=== PATIENT | female | born 1985 | race Caucasian/White ===

== ENCOUNTER 2019-08-19 22:13 | Emergency (ER) | payer OTHER ==
[2019-08-19] MEDS ORDERED: oxyCODONE/Acetamin 5/325 MG* TAB PO ONE (23:47)
--- NOTE | 2019-08-20 00:04 | ED ---
Throat Pain/Nasal Congestion - HPI Summary HPI Summary: 33 year old female presents with dental pain for the past week. [facility] and was on penicillin and given some tramadol. She followed up with her dentist who said that waned to wait a week to do something and is concerned that she has pulpitis and the tooth is . States that she had worsening pain. She states she texted dentist and they told her to see on thursday. She states the pain is becoming more and more intense. She states she has a sharp pain. Has no swelling to the area. No chest or shortness of breath. States the pain radiates up her jaw. - History of Current Complaint Chief Complaint: EDDentalPain Time Seen by Provider: 08/19/19 23:06 - Allergies/Home Medications Allergies/Adverse Reactions: Allergies Allergy/AdvReac Type Severity Reaction Status Date / Time No Known Allergies Allergy Verified 08/19/19 22:18 Home Medications: Home Medications Dextroamphetamine/Amphetamine [Dextroamp-Amphet ER 20 mg Cap] 20 mg PO DAILY [History Confirmed 08/19/19] Escitalopram * [Lexapro 10 mg (NF)] 10 mg PO DAILY 08/19/19 [History Confirmed 08/19/19] Ibuprofen TAB* 600 mg PO ONCE 08/19/19 [History Confirmed 08/19/19] Minocycline (NF) 200 mg PO DAILY 08/19/19 [History Confirmed 08/19/19] PMH/Surg Hx/FS Hx/Imm Hx Endocrine/Hematology History: Denies: Hx Anticoagulant Therapy Respiratory History: Denies: Hx Asthma Infectious Disease History: No Infectious Disease History: Denies: Traveled Outside the [place] in Last 30 Days - Family History Known Family History: Positive: Non-Contributory - Social History Alcohol Use: Rare Substance Use Type: Reports: None Smoking Status (MU): Never Smoked Tobacco Review of Systems Negative: Fever Positive: Dental Pain Negative: Chest Pain Negative: Shortness Of Breath All Other Systems Reviewed And Are Negative: Yes Physical Exam Triage Information Reviewed: Yes Vital Signs On Initial Exam: Initial Vitals Temp Pulse Resp BP Pulse Ox 98.7 F 82 16 147/91 100 08/19/19 22:15 08/19/19 22:15 08/19/19 22:15 08/19/19 22:15 08/19/19 22:15 Vital Signs Reviewed: Yes Appearance: Positive: Well-Appearing Skin: Positive: Warm, Dry Head/Face: Positive: Normal Head/Face Inspection Eyes: Positive: Normal, EOMI, WINTER, Conjunctiva Clear ENT: Positive: Normal ENT inspection, Pharyngeal erythema, TMs normal Dental: Positive: Percussion Tenderness @ - left lower jaw. Negative: Dental Fracture @, Abscess @ Neck: Positive: Supple, Nontender, No Lymphadenopathy Respiratory/Lung Sounds: Positive: Clear to Auscultation, Breath Sounds Present Cardiovascular: Positive: Normal, RRR Musculoskeletal: Positive: Normal Neurological: Positive: Normal Psychiatric: Positive: Normal Procedures - Sedation Patient Received Moderate/Deep Sedation with Procedure: No Diagnostics - Vital Signs Vital Signs Temp Pulse Resp BP Pulse Ox 08/19/19 22:15 98.7 F 82 16 147/91 100 - Laboratory Lab Statement: Any lab studies that have been ordered have been reviewed, and results considered in the medical decision making process. EENT Course/Dx - Course Course Of Treatment: 33 year old female presents with dental pain for the past week. She was seen at [facility] a week ago and was on penicillin and given some tramadol. She followed up with her dentist who said that waned to wait a week to do something and is concerned that she has pulpitis and the tooth is . States that she had worsening pain. She states she texted dentist and they told her to see on thursday. She states the pain is becoming more and more intense. She states she has a sharp pain. Has no swelling to the area. No chest or shortness of breath. States the pain radiates up her jaw. On exam no erythema or abscess noted. The patient is still on penicillin. Will give a short course of the pain medication. told to follow up dentist. Patient understands and agrees the plan. - Differential Diagnoses Differential Diagnoses: Dental Abscess, Dental Caries, Fractured Tooth - Diagnoses Provider Diagnoses: Dental infection Discharge ED - Sign-Out/Discharge Documenting (check all that apply): Patient Departure - Discharge Plan Condition: Good Disposition: HOME Prescriptions: oxyCODONE/Acetamin 5/325 MG* [Percocet 5/325 TAB*] 1 tab PO Q6H PRN #6 tab MDD 4 PRN Reason: Pain - Severe Patient Education Materials: Toothache (ED) Referrals: [facility], [employer] [Primary Care Provider] - Additional Instructions: continue antibiotic Take percocet every 6 hours as needed for pain Follow up with dentist as scheduled Return to ED if develop fever or any new or worsening symptoms - Billing Disposition and Condition Condition: GOOD Disposition: Home
[2019-08-20 00:20] VITALS: BP 121/90
== END 2019-08-20 00:18 | disposition home or self-care (01) ==
LOC: ED 22:13
DX: K04.7 Periapical abscess without sinus (principal); Z79.899 Other long term (current) drug therapy
CPT/HCPCS: 99282; A9270-GY